=== PATIENT | female | born 1980 | race Hispanic/Latino ===

== ENCOUNTER 2020-01-03 12:41 | Day surgery (SDC) | payer OTHER ==
[2020-01-03 13:29] VITALS: BMI 32.5
--- NOTE | 2020-01-03 14:29 | PDOC.FPROB ---
FMR OB H&P: HPI - History of Present Illness Chief Complaint: Low LEIA History of Present Illness: 39 year old @ 37.2 wks by 7.0 wk US(AGATA: 01/22/2020) inconsistent with LMP who presents after being seeing at the clinic and was found to have low LEIA after a weekly mBPP/NST for AMA and Obesity. She endorses good movement. She says she is having suprapubic contractions 1-3 times per day that last for seconds to 1 minutes. She denies any loss of fluid, vaginal bleeding, vaginal discharge, dysuria, or mucus production. She states she has had no complications in this . Primary Care Physician: ESTHELA FMR OB H&P: Current - Care : 5 Para: 3104 Gestational age: 37.2 Due date: 01/22/2020 Dating Criteria: 7.0 wk US - OB Labs Blood type: A RH: negative Antibody Screen: negative HIV: negative RPR: negative HepBsAg: negative Rubella: immune Gonorrhea: negative Chlamydia: negative Pap Smear: 06/04 NILM with HPV 18 positivity 3 hour GTT: fasting-81, 1H-144, 2H-110 A1c: 5.2% GBS: negative H&H: 12.1/34.8 Platelets: 233 FMR OB H&P: History - Past Medical History PMH: None - OB History OB History: She had 1 with her first and has had vaginal deliveries after. She is scheduled for a on 01/16/2020. 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 - Family History Family History: Youngest son has a history of [place] Syndrome with 3 heart murmurs, heart surgery in 08/04, and is currently on growth hormones. FMR OB H&P: Medications - Current Home Medications: Medication Instructions Recorded Confirmed Type Vit37/Iron/Folic Acid 1 tab PO DAILY 01/03/20 01/03/20 History [Prenata Chewable Tablet] Allergies/Adverse Reactions: Allergies Allergy/AdvReac Type Severity Reaction Status Date / Time No Known Allergies Allergy Verified 01/03/20 13:31 FMR OB H&P: ROS - Review of Systems General: denies: fever/chills, fatigue Eyes: denies: vision changes ENT: denies: nasal congestion, rhinorrhea, sore throat Cardiovascular: reports: edema. denies: chest pain Respiratory: denies: cough, congestion, shortness of breath Gastrointestinal: denies: abdominal pain, nausea, vomiting, diarrhea, constipation Genitourinary (Female): reports: contractions. denies: dysuria, polyuria, vaginal discharge, vaginal pain, vaginal bleeding Musculoskeletal: denies: pain, stiffness Neurologic: denies: numbness, weakness Integumentary: denies: itching, rash Endocrine: denies: polydipsia, polyuria Hematologic/Lymphatic: denies: prolonged or excessive bleeding, enlarged lymph nodes FMR OB H&P: Vital Signs - Heart Tones Baseline: 140 Variability: moderate FMR OB H&P: A/P - Problem List (1) Term Current Visit: Yes Status: Acute Code(s): Z34.90 - ENCNTR FOR SUPRVSN OF NORMAL , UNSP, UNSP TRIMESTER (2) LEIA (amniotic fluid index) borderline low Current Visit: Yes Status: Acute Code(s): O28.8 - OTHER ABNORMAL FINDINGS ON SCREENING OF MOTHER (3) Hx of leukocytosis Current Visit: Yes Status: Acute Code(s): Z86.2 - PRSNL HISTORY OF DIS OF THE BLD/BLD-FORM ORG/IMMUN MECHNSM (4) Neutrophilia Current Visit: Yes Status: Acute Code(s): D72.9 - DISORDER OF WHITE BLOOD CELLS, UNSPECIFIED Disposition: 39 year old @ 37.2 wks by 7.0 wk US(AGATA: 01/22/2020) inconsistent with LMP who presents after being seeing at the clinic and was found to have low LEIA after a weekly mBPP/NST for AMA and Obesity. 1. Term 37.2 wks by 7.0 wk US * Currently taking PNV * Approved for Salpingectomy due to increased risk of ovarian cancer * GBS: Neg * TD: 10/26/19 * Flu: 08/01/19 * Rhogam given 11/28/2019 2. Low MVP on mBPP/NST MVP is < 2cm * Referred for full BPP * Denies loss of fluid * Will get full BPP/NST here 3. Hx of Leukocytosis with Neutrophilia Peripheral smear: mild leukocytosis with mild absolute neutrophilia (ANC 8.9 K/ uL) * Possibly due to infection/inflammation/metabolic disturbance/ uremia/acidosis / endocrine abnormalities * Followed up in the outpatient 4. Hx of [place] Syndrome in sibling Referred to [facility] @ 14 wks * De natasha mutation, so risk is low in future * Declined testing 5. RH Negative Given Rhogam 11/28/2019 * Will need another Rhogam if baby is RH positive or if bleeding occurs. Dispo: Working up for possible low LEIA. Will get BPP/NST. Discussion: Date/Time: 01/03/20 8425 This H&P was discussed with [] and [] who agree with the above documentation and plan. Addendum - Attending - Attending Attestation Date/Time: 01/03/20 1600 I personally evaluated the patient and discussed the management with Dr. Salmon. I agree with the History, Examination, Assessment and Plan documented above.
[2020-01-03] MEDS ORDERED: hydrALAZINE 20 MG/ML VIAL SLOW IVP PRN (14:43)
--- NOTE | 2020-01-03 16:09 | ULT ---
ULTRASOUND BIOPHYSICAL PROFILE: 01/03/20 HISTORY: 39-year-old female in third trimester with abnormal biophysical profile. COMPARISON: None. Results of this study were verbally given by the nurse intern to nurse Marge just after the scan. FINDINGS: breathin tone: 2 movement: 2 Amniotic fluid volume: 2 lie: Variable. Placenta: Anterior and to the right. No placenta previa. LEIA: 8.5 cm. heart rate: 141 bpm. IMPRESSION: 1. Normal biophysical profile score of 8/8, excluding the non-stress test. 2. LEIA of 8.5 cm. jn [] POS: OFF
--- NOTE | 2020-01-03 16:29 | PDOC.BPN ---
<Bakari Salmon - Last Filed: 01/03/20 16:27> - Brief Progress Note BPP/NST: 07/26 with LEIA: 8.5 BPP/NST was reviewed with Dr. Nunez before seeing patient. Will discharge to home. Follow up with regularly scheduled pre-gabriela clinic visit next week. <Phil Nunez - Last Filed: 01/03/20 19:35> Addendum - Attending - Attending Attestation Date/Time: 01/03/201934 I personally evaluated the patient and discussed the management with Dr. Salmon. I agree with the Assessment and Plan documented above.
[2020-01-04] MEDS ORDERED: FLU VACC QS2019-20(6MOS UP)/PF 60 MCG/0.5 ML SYRINGE IM ONE (09:00)
== END 2020-01-03 16:16 | disposition home health service (06) ==
LOC: L&D/OP 12:41
PROVIDERS: ATTEND Obstetrics & Gynecology
DX: O28.8 Other abnormal findings on antenatal screening of mother (principal); O99.113 Other diseases of the blood and blood-forming organs and certain disorders involving the immune mechanism complicating pregnancy, third trimester; D72.89 Other specified disorders of white blood cells; O09.523 Supervision of elderly multigravida, third trimester; O99.213 Obesity complicating pregnancy, third trimester; E66.9 Obesity, unspecified; Z3A.37 37 weeks gestation of pregnancy
CPT/HCPCS: 59025; 76819; 99283

== ENCOUNTER 2020-01-16 10:16 | Inpatient (IN) | payer MEDICAID, OTHER, SELFPAY ==
[2020-01-16 11:02] VITALS: BMI 32.1
[2020-01-16] MEDS ORDERED: Ondansetron PF 4 MG/2 ML Vial IVP PRN ×3 (11:06→15:04)
[2020-01-16] MEDS ORDERED: hydrALAZINE 20 MG/ML VIAL SLOW IVP PRN ×2 (11:06→15:04)
[2020-01-16] MEDS ORDERED: Promethazine HCl 25 MG/ML VIAL IM PRN ×2 (11:06→11:35)
--- NOTE | 2020-01-16 11:14 | PDOC.FPROB ---
FMR OB H&P: HPI - History of Present Illness Chief Complaint: rC-section Indentification: 39 year old @ 39.1 wks by 7.0 wk US(AGATA: 01/22/2020) inconsistent wit History of Present Illness: Pt having elective rLTCS and is having risk reducing salpingectomy due to family history of ovarian cancer. Pt denies vag bleeding/discharge, LOF, or decreased movements. Pt admits to movements feeling normal. Pt anticipating surgery. PT's sister and mother both reported to have ovarian cancer. First was for emergent concerns. Primary Care Physician: SUE [id number] MD FMR OB H&P: Current - Care : 5 Para: 3104 Gestational age: 39.1 Due date: 01/22/2020 Dating Criteria: 7.0 wk US - OB Labs Blood type: A RH: negative Antibody Screen: negative HIV: negative RPR: negative HepBsAg: negative Rubella: immune Urine drug screen: not done Gonorrhea: negative Chlamydia: negative Pap Smear: 06/04 NILM w/ HPV 18 positivity 3 hour GTT: fasting-81, 144, 110 A1c: 5.2 GBS: negative H&H: 12.1/34.8 Platelets: 233 FMR OB H&P: History - Past Medical History PMH: None - OB History OB History: she 1 w/ her first and vaginal deliveries since for emergent concerns. 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 Currently on 3 growth hormones Mother and sister dx with ovarian cancer. FMR OB H&P: Medications - Current Home Medications: Medication Instructions Recorded Confirmed Type Vit37/Iron/Folic Acid 1 tab PO DAILY 01/03/20 01/03/20 History [Prenata Chewable Tablet] Allergies/Adverse Reactions: Allergies Allergy/AdvReac Type Severity Reaction Status Date / Time No Known Allergies Allergy Verified 01/03/20 13:31 FMR OB H&P: ROS - Review of Systems General: denies: fever/chills, weight/appetite/sleep changes Eyes: denies: eye pain, vision changes ENT: denies: nasal congestion Cardiovascular: denies: chest pain, edema Respiratory: denies: cough, shortness of breath Gastrointestinal: denies: abdominal pain, cramping, nausea, vomiting Genitourinary (Female): denies: dysuria, vaginal discharge, vaginal bleeding Musculoskeletal: denies: pain, stiffness, tenderness, swelling Neurologic: denies: syncope, seizures Integumentary: denies: rash Hematologic/Lymphatic: denies: prolonged or excessive bleeding, enlarged lymph nodes FMR OB H&P: Vital Signs - Maternal Vital signs: Vital Signs - First Documented Temp Pulse Resp BP 97.7 F 103 H 18 107/56 L 01/16/20 10:55 01/16/20 10:55 01/16/20 10:55 01/16/20 10:55 - Heart Tones Baseline: 145 Variability: moderate Acceleration: present [place] contractions every: few random FMR OB H&P: Physical Exam - Physical Exam General: NAD, awake, alert and oriented HEENT: normocephalic and atraumatic, PERRLA, EOMI, MMM, conjunctiva clear, no scleral icterus, grossly normal vision, grossly normal hearing, oropharynx clear , good dention Neck: supple, FROM, trachea midline, no LAD, no JVD Chest: non-tender to palpation, no lesions Breast: symmetric Heart: RRR, normal S1/S2, no murmurs/rubs/gallops, pulses present, no edema General: CTAB, no respiratory distress, good air movement, no rales/rhonchi, no wheezing, no retractions Abdomen: soft, gravid, non-tender, bowel sound present, no masses, no hernias Musculoskeletal: normal gait and station, pulses present, FROM in all four extremities, no atrophy Neurological: sensation to pain,touch and proprioception grossly normal, no clonus, no tremor, no focal deficit Skin: no rash, good tugor, capillary refill <2 seconds, no jaundice Lymphatic: no unusual bruising or bleeding, no purpura, no petechia Psychiatric: intact recent and remote memory, good judgement and insight, normal mood and affect - Pelvic Exam Vulva: normal hair distribution FMR OB H&P: A/P - Problem List (1) S/P repeat low transverse Current Visit: Yes Status: Acute Code(s): Z98.891 - HISTORY OF UTERINE SCAR FROM PREVIOUS SURGERY (2) Family history of ovarian cancer Current Visit: Yes Status: Acute Code(s): Z80.41 - FAMILY HISTORY OF MALIGNANT NEOPLASM OF OVARY (3) Term Current Visit: No Status: Acute Code(s): Z34.90 - ENCNTR FOR SUPRVSN OF NORMAL , UNSP, UNSP TRIMESTER Discussion: Date/Time: 01/16/20 1112 39 year old @ 39.1 wks by 7.0 wk US(AGATA: 01/22/2020) inconsistent with LMP. 1. term @ 39.1 wks - FHT's 145 baseline, few random ctx. - repeat LTCS scheduled for today due to opportunistic salpingectomy from strong fhx of ovarian CA. - + FM, denies vag bleeding or d/c 2. Strong FHx of Ovarian Ca - Opportunistic salpingectomy scheduled after today. 3. Scheduled repeat LTCS - 1st was due to emergent concerns. She has had since. This H&P was discussed with Dr. Ogden and Dr. Queen and Dr. Marsh attending who agree with the above documentation and plan. Addendum - Attending - Attending Attestation Date/Time: 01/16/20 1211 I personally evaluated the patient and discussed the management with Dr. Miller I agree with the History, Examination, Assessment and Plan documented above with any addition or exceptions noted below. 39 yo HF presents for rLTCS with RRS. ethics committee approved RRS. R/B/A discussed and all questions answered. will proceed with RLTCs.
[2020-01-16] MEDS ORDERED: CEFAZOLIN 2 GM in Premix Bag 1 BAG IVPB SCH (11:15)
[2020-01-16] MEDS ORDERED: Bicitra 30 ML UDCUP PO SCH (11:15)
[2020-01-16 11:29] LABS: Hemoglobin 14.5 g/dL (12.0-16.0); Mean Corpuscular HGB CONC 34.8 g/dL (32.0-36.0); Mean Corpuscular Hemoglobin 31.7 pg (27.0-31.0); Mean Platelet Volume 8.6 fL (7.4-10.4); Platelet Count 240 thou/uL (130-400); RBC Distribution Width 12.1 % (11.5-14.5); Red Blood Cell (RBC) Count 4.57 mill/uL (4.20-5.40); White Blood Cell (WBC) Count 16.2 thou/uL (4.8-10.8)
[2020-01-16] MEDS ORDERED: Naloxone HCl 0.4 mg/ml Vial IV PRN (11:35)
[2020-01-16] MEDS ORDERED: diphenhydrAMINE 50 MG/ML VIAL IVP PRN (11:35)
[2020-01-16] MEDS ORDERED: Ketorolac Tromethamine 30 MG/ML VIAL IVP PRN (11:35)
[2020-01-16] MEDS ORDERED: Ondansetron HCl/PF 4 MG/2 ML Vial IVP PRN (11:35)
[2020-01-16] MEDS ORDERED: Promethazine HCl 25 MG SUPP PR PRN (11:35)
[2020-01-16] MEDS ORDERED: Naloxone HCl 0.4 mg/ml Vial IVP PRN ×2 (11:35)
[2020-01-16] MEDS ORDERED: Communication Order-Pharmacy FS SCH (11:45)
[2020-01-16] MEDS ORDERED: Oxytocin 10 UNITS/ML VIAL ONE ×3 (12:00→12:02)
[2020-01-16] MEDS ORDERED: MORPHINE 5 MG/10 ML PF VIAL ONE (12:00)
[2020-01-16] MEDS ORDERED: PHENYLEPHRINE-NS 100 MCG/ML 10 ML SYRINGE ONE ×2 (12:00→13:04)
[2020-01-16] MEDS ORDERED: Ondansetron PF 4 MG/2 ML Vial ONE (12:00)
[2020-01-16] MEDS ORDERED: EPHEDRINE 25 MG/5 ML SYRINGE ONE (12:00)
[2020-01-16 12:11] LABS: HBSAg Index 0.19 S/CO (0-0.99); Hep B Surf Ag Non-Reactive S/CO (NonReactive); Syphilis Antibody Nonreactive (Nonreactive); Syphilis Antibody Index 0.03 S/CO (<1.00 Non-Reactive)
[2020-01-16 13:09] LABS: Actual Bicarbonate (HCO3a) 24.3 mEq/L (22-28)
[2020-01-16] MEDS: Lactated Ringer's 1,000 ML IV SCH ×2 (13:15→19:51)
[2020-01-16] MEDS: Acetaminophen 650 MG Suppository PR SCH ×2 (13:16→17:38)
[2020-01-16] MEDS ORDERED: Ketamine 50 MG/ML (10ML VIAL) ONE (13:27)
[2020-01-16] MEDS ORDERED: Ketorolac Tromethamine 30 MG/ML VIAL ONE (13:56)
--- NOTE | 2020-01-16 14:43 | PDOC.OP ---
Operative Note - Operative Note Operative Note: Procedure Note Date of Procedure: 01/16/20 Resident Surgeons: Suellen Nesbitt Attending Surgeon: Dr. Roshan Marsh, Dr Lanny Spann Procedure: Repeat low transverse caesarean section, Risk Reducing Salpingectomy Preoperative Diagnosis: 1) Term intrauterine 2) Previous 3) Previous Child with Will Sydnrome 4) Rh - 5) Family history of ovarian cancer Postoperative Diagnosis: 1) Same Anesthesia: spinal Indications: 39 year old @ 39.1 wks presents for scheduled repeat section and risk reducing salpingectomy. Procedure in Detail: After risks, benefits, and alternatives were explained to the patient, she gave informed consent. Pre-operative antibiotics included ancef. The patient was taken to the operating room and spinal anesthesia was placed. She was placed in the supine position with a left tilt and prepped and draped in usual sterile fashion. A Pfannenstiel incision was made with a scalpel and carried down to the level of the fascia which was sharply nicked. The fascial cut was extended bilaterally with Malik scissors. The inferior and superior edges of the cut fascial edges were elevated with Pamela clamps and the underlying rectus muscles were sharply and bluntly dissected free. The recti were divided using hemostat and malik scissors sharply and bluntly. The peritoneum was entered bluntly and retracted manually. An Son O-ring was placed. A low transverse score was made with the scalpel and the uterus was entered in the midline with the scalpel. Clear fluid was seen. The hysterotomy was extended manually. The infant was noted to be vertex and was easily delivered by fundal pressure. Mouth and nares were bulb suctioned. Cord clamped and cut and grossly normal female infant was handed to waiting nurse. Cord blood and gas was obtained. Placenta was manually extracted, found to be intact with 3 vessel cord and discarded. The uterus was externalized and the endometrium was curetted with a dry lap. The hysterotomy was closed with a running locking 0-Monocryl in the usual fashion. A horizontal imbricating layer was placed using 0- Monocryl in the usual fashion. Following this 2 figure of eight knots were placed. There was a small amount of oozing and as such surgi- seal was placed along the length of the hysterotomy. Following this hemostasis was appreciated. See Dr. Lewis note for RRS procedure. Uterus was then internalized and the hysterotomy was again noted to be hemostatic. The rectus was evaluated for bleeders, which were attended to with bovie, following this hemostasis was noted. The fascia was closed with a running non-locking 0-PDS suture. The subcutaneous tissue was irrigated and there were bleeders were attended to with bovie. The subcutaneous layer was approximated with 3-0 chromic in a running fashion. The skin was approximated with 1-0 monocryl on a katherine needle and a pressure dressing was placed. All counts were correct. The patient tolerated the procedure well and was taken to the recovery room in stable condition. QBL: 660ml Complications: None Specimens: Cord blood sent to lab for blood type. Fallopian tubes sent for confirmation. Findings: Grossly normal female . Grossly normal placenta with 3 vessel cord discarded. Drains: Hurtado to gravity draining clear urine
[2020-01-16] MEDS ORDERED: Acetaminophen 325 MG TAB PO PRN (15:04)
[2020-01-16] MEDS ORDERED: Adacel (T-DAP) 0.5 ML SYRINGE IM ONE (15:04)
--- NOTE | 2020-01-16 18:29 | PDOC.BPN ---
- Brief Progress Note 39 y/o @ 39.1 WGA delivered via rLTCS with RRS @ 1257 on 01/16/20 Pt examined 4 hours post-op S: Pt reports pain well controlled. She has been tolerating clears with no N/V. She reports feeling hungry. Reports minimal lochia. She has been trying to breast feed, but her milk hasn't come in. O: BP borderline low, but with normal pulse Skin - bandage c/d/i Abdomen - soft, NTTP, fundus firm below umbilicus Ext - no edema A/P: Term Delivered s/p section -Continue routine care
[2020-01-16] MEDS: Docusate Calcium (SURFAK) 240 MG CAP PO SCH (21:00)
[2020-01-16] MEDS ORDERED: HYDROcodone/Acetaminophen 5/325 mg Tablet PO PRN (23:45)
[2020-01-17] MEDS: Acetaminophen 650 MG Suppository PR SCH ×2 (00:40→06:38)
[2020-01-17 05:45] LABS: Hemoglobin 11.6 g/dL (12.0-16.0)
[2020-01-17] MEDS: Lactated Ringer's 1,000 ML IV SCH ×3 (06:37→19:40)
--- NOTE | 2020-01-17 06:54 | PDOC.OBPPN ---
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 No acute overnight events. BP's have been low, but pt asymptomatic. Chief Complaint: r LTCs Interval History: -> 4105 delivered vis rLTCS on 01/15 @ 12:57 on 01/15 FMR OB PN: Obj - Maternal Vital signs: BP: 102-91/50-45 HR: 76 RR: 18 Tmax: 98.2 Pox: 98% on ra Wt: 77 kg - Urine output I&O: 01/15/20 01/16/20 01/17/20 06:59 06:59 06:59 Intake Total 2101 Output Total 3565 Balance -1464 QBL 765 mL - Lochia Lochia: minimal lochia - Pain Management Pain scale: 5 Intervention: oral medication FMR OB PN: Exam - Physical Exam General: NAD, awake, alert and oriented HEENT: normocephalic and atraumatic, PERRLA, EOMI, MMM, no scleral icterus, grossly normal vision, grossly normal hearing Neck: supple, FROM, trachea midline Chest: non-tender to palpation Breast: symmetric Heart: RRR, normal S1/S2, no murmurs/rubs/gallops, pulses present, no edema General: CTAB, no respiratory distress, good air movement, no rales/rhonchi, no wheezing, no retractions Abdomen: soft, bowel sound present, other (fundus firm at umbilicus appropriately TTP) Musculoskeletal: normal gait and station, pulses present, FROM in all four extremities, no misalignment/asymmetry, no atrophy Deviation from normal: negative homans B Neurological: sensation to pain,touch and proprioception grossly normal, no clonus, no tremor, no focal deficit Skin: no rash, good tugor, capillary refill <2 seconds, no jaundice : incision healing well, no erythema, no edema, no drainage, appropriately tender Deviation from normal: bandage removed this AM, no signs of infection Lymphatic: no unusual bruising or bleeding, no purpura, no petechia Psychiatric: intact recent and remote memory, good judgement and insight, normal mood and affect - Pelvic Exam : normal lochia (very minimal) FMR OB PN: Data - Labs Lab results: Laboratory Results - last 24 hr 01/16/20 01/16/20 01/16/20 11:21 11:21 11:21 WBC 16.2 H RBC 4.57 Hgb 14.5 Hct 41.6 MCV 91.0 MCH 31.7 H MCHC 34.8 RDW 12.1 Plt Count 240 MPV 8.6 Bicarbonate Actual ABG Base Excess Cord ABG pH Cord ABG PCO2 (Brett) Syphilis IgG/IgM Ab Nonreactive Hep Bs Antigen Non-Reactive Blood Type Antibody Screen Antibody Identification Screen 01/16/20 01/16/20 01/16/20 12:00 13:07 15:55 WBC RBC Hgb Hct MCV MCH MCHC RDW Plt Count MPV Bicarbonate Actual 24.3 ABG Base Excess -5.0 L Cord ABG pH 7.203 L Cord ABG PCO2 (Brett) 63.2 H* Syphilis IgG/IgM Ab Hep Bs Antigen Blood Type A NEGATIVE Antibody Screen POSITIVE H Antibody Identification ANTI-D DUE TO RHOGAM INJECTION Screen NEGATIVE 01/17/20 05:21 WBC RBC Hgb 11.6 L Hct 32.7 L MCV MCH MCHC RDW Plt Count MPV Bicarbonate Actual ABG Base Excess Cord ABG pH Cord ABG PCO2 (Brett) Syphilis IgG/IgM Ab Hep Bs Antigen Blood Type Antibody Screen Antibody Identification Screen FMR OB PN: A/P - Problem List (1) S/P repeat low transverse Current Visit: Yes Status: Acute Code(s): Z98.891 - HISTORY OF UTERINE SCAR FROM PREVIOUS SURGERY (2) Family history of ovarian cancer Current Visit: Yes Status: Acute Code(s): Z80.41 - FAMILY HISTORY OF MALIGNANT NEOPLASM OF OVARY (3) Term Current Visit: No Status: Acute Code(s): Z34.90 - ENCNTR FOR SUPRVSN OF NORMAL , UNSP, UNSP TRIMESTER Discussion: Date/Time: 01/17/20 0652 39 year old @ 39.1 wks by 7.0 wk US(AGATA: 01/22/2020) inconsistent with LMP. 1. rLTCS @ 39.1 wks oon 01/15 - repeat LTCS due to risk reducing salpingectomy from strong fhx of ovarian CA. - Pt tolerated procedure well, repeat H/H 11.6/32.7, added po iron once daily to take for 4-6 weeks. QBL 765 this AM. - no BM, urinating well, slight abd tenderness, walking and sitting in chair, neg homans. - Encouraging passing gas and advance diet as tolerated. 2. Strong FHx of Ovarian Ca - risk reducing salpingectomy performed 01/15. Pt tolerated procedure well. 3. Post operative acute blood loss anemia, stbale - started on PO iron daily. - Pt asymptomatic - monitor vitals. Stable This A&P was discussed with Dr. Orozco and Dr. Ogden who agree with the above documentation and plan. Addendum - Attending - Attending Attestation Date/Time: 01/17/20 5489 I personally evaluated the patient and discussed the management with Dr. Miller and Alin. I agree with the History, Examination, Assessment and Plan documented above with any addition or exceptions noted below.
[2020-01-17] MEDS: Ferrous Sulfate 325 MG TAB PO SCH (07:42)
[2020-01-17] MEDS: Prenatal Vitamin 1 TAB PO SCH (08:29)
[2020-01-17] MEDS: Docusate Calcium (SURFAK) 240 MG CAP PO SCH ×2 (08:29→20:50)
--- NOTE | 2020-01-17 08:31 | OP ---
DATE OF PROCEDURE: 01/16/2020 ADDENDUM: PROCEDURE PERFORMED: Risk reducing salpingectomy at the time of section. COMPLICATIONS: None. DESCRIPTION OF PROCEDURE: I was consulted in the operating room by Dr. Roshan Marsh for a risk reducing salpingectomy at the time of . Please see the operative report for the portion of the procedure. After the hysterotomy was closed, attention was turned to the fallopian tubes. The left tube was grasped with a Yue clamp, tented up until a clear portion of the mesosalpinx was visible. The Bovie was used to create a hole in this space, and a Latosha clamp was passed through from the distal portion of the fallopian tube to that space. This was cut with cautery, and the stump was ligated with 2-0 chromic free tie with good hemostasis. This procedure was repeated until the proximal portion of the tube at the uterus could be reached. The tube was then clamped with a Latosha clamp, excised, and ligated with good hemostasis. This same procedure was repeated on the right side with good hemostasis noted. The uterus was returned to the abdomen. Again, good hemostasis was noted on both sides. The tubes were sent to pathology. The remainder of the procedure was finished by Dr. Marsh and his team. Please see his note for full details. Job ID: [id number]
[2020-01-17] MEDS ORDERED: Acetaminophen 325 MG TAB PO PRN (12:00)
[2020-01-17] MEDS: Ibuprofen 800 MG TAB PO SCH ×2 (13:12→20:50)
[2020-01-18] MEDS: Lactated Ringer's 1,000 ML IV SCH (05:04)
[2020-01-18] MEDS: Ibuprofen 800 MG TAB PO SCH (05:10)
--- NOTE | 2020-01-18 06:40 | PDOC.PP ---
Post Progress Note Post Day #: 2 Subjective: Pt doing well. States she will not have wic until the 8th. Needs bottle/formula to take home. c/o slight abd pain, controlled with pain medications. denies heavy lochia bonding well with baby no acute overnight events. BP readings have been low throughout PP course. PO intake tolerated: yes Flatus: yes Ambulation: yes Vital Signs (12 hours) Temp Pulse Resp BP Pulse Ox 01/18/20 05:08 97.9 F 75 18 90/53 L 01/18/20 00:35 98.3 F 83 18 96/58 L 01/17/20 20:45 96 01/17/20 19:38 98.3 F 85 16 92/55 L 96 Weight Weight 77.111 kg - Physical Examination General: NAD Cardiovascular: no m/r/g, RRR Respiratory: clear to auscultation bilaterally, non-labored breathing Abdominal: + bowel sounds, lochia, no distention, appropriately TTP Extremities: negative homans (B) Skin: CS incision dry & intact, no rash Neurological: no gross focal deficits Psychiatric: A&Ox3, normal affect Result Diagrams: 01/17/20 05:21 Additional Labs: Post Labs Blood Type A NEGATIVE 01/16/20 12:00 Hep Bs Antigen Non-Reactive S/CO (NonReactive) 01/16/20 11:21 (1) S/P repeat low transverse Code(s): Z98.891 - HISTORY OF UTERINE SCAR FROM PREVIOUS SURGERY Status: Acute (2) Family history of ovarian cancer Code(s): Z80.41 - FAMILY HISTORY OF MALIGNANT NEOPLASM OF OVARY Status: Acute (3) Term Code(s): Z34.90 - ENCNTR FOR SUPRVSN OF NORMAL , UNSP, UNSP TRIMESTER Status: Acute - Assessment/Plan 39 year old delivered via rLTCS @ 39.1 wks on 01/16/20 @ 12:57. 1. rLTCS @ 39.1 wks oon 01/15 - repeat LTCS due to risk reducing salpingectomy from strong fhx of ovarian CA. - Pt tolerated procedure well, repeat H/H 11.6/32.7, added po iron once daily to take for 4-6 weeks. QBL 765 this AM. - no BM but passing flatus well, urinating well, slight abd tenderness, walking well, neg homans. pain controlled. - Encouraging passing gas and advance diet as tolerated. - planning d/c home today. 2. Strong FHx of Ovarian Ca - risk reducing salpingectomy performed 01/15. Pt tolerated procedure well. 3. Post operative acute blood loss anemia, stable - started on PO iron daily. - Pt asymptomatic - monitor vitals. Stable This A&P was discussed with Dr. Orozco and Dr. Ogden who agree with the above documentation and plan. Addendum - Attending - Attending Attestation Date/Time: 01/18/20 9014 I personally evaluated the patient and discussed the management with Dr. Miller. I agree with the History, Examination, Assessment and Plan documented above with any addition or exceptions noted below. Likely dc today.
[2020-01-18 08:17] VITALS: BP 106/55; TEMP 97.6
[2020-01-18] MEDS: Ferrous Sulfate 325 MG TAB PO SCH (09:55)
[2020-01-18] MEDS: Docusate Calcium (SURFAK) 240 MG CAP PO SCH (09:55)
[2020-01-18] MEDS: Prenatal Vitamin 1 TAB PO SCH (09:55)
== END 2020-01-18 12:45 | disposition home or self-care (01) | DRG 784 ==
LOC: L&D 10:16 → 3SW 17:15
PROVIDERS: ADMIT Family Medicine; ATTEND Family Medicine
PROC: 10D00Z1 Extraction of Products of Conception, Low, Open Approach (ICD-10-PCS; principal; 2020-01-16)
PROC: 0UT70ZZ Resection of Bilateral Fallopian Tubes, Open Approach (ICD-10-PCS; 2020-01-16)
DX: O34.211 Maternal care for low transverse scar from previous cesarean delivery (principal); D62 Acute posthemorrhagic anemia; Z3A.39 39 weeks gestation of pregnancy; Z37.0 Single live birth; Z80.41 Family history of malignant neoplasm of ovary; O90.81 Anemia of the puerperium
CPT/HCPCS: 36415; 51702; 82805; 85014; 85018; 85027; 85461; 86780; 86850; 86870; 86900; 86901; 87340; 88302; 90384; 96372; J0690; J1885; J2274; J2405; J2590